=== PATIENT | female | born 1955 | race Caucasian/White ===

== ENCOUNTER 2023-01-15 09:58 | Emergency (ER) | payer MEDICARE, BC ==
[~2023-01-15 09:58] MED LIST: Iopamidol 370 76% 100 ML VIAL ONE
[2023-01-15] MEDS ORDERED: Ondansetron PF 4 MG/2 ML Vial ONE ×2 (10:27→14:54)
[2023-01-15 10:33] LABS: #Monocytes 0.3 thou/uL (0.11-0.59); #Neutrophils 7.9 thou/uL (1.40-6.50); %Basophils 0.1 % (0.0-1.0); %Monocytes 3.7 % (0.0-10.0); %Neutrophils 86.9 % (42.0-75.0); Hemoglobin 9.9 g/dL (12.0-16.0); Mean Corpuscular HGB CONC 32.8 g/dL (32.0-36.0); Mean Corpuscular Hemoglobin 29.4 pg (27.0-31.0); Mean Corpuscular Volume 89.6 fl (78.0-98.0); Mean Platelet Volume 9.7 fL (7.4-10.4); Platelet Count 351 10x3/uL (130-400); RBC Distribution Width 16.2 % (11.5-14.5); Red Blood Cell (RBC) Count 3.37 mill/uL (4.20-5.40); White Blood Cell (WBC) Count 9.1 10x3/uL (4.8-10.8)
[2023-01-15] MEDS ORDERED: Promethazine HCl 6.25 MG in Sodium Chloride 0.9% 50 ML IVPB SCH (10:45)
[2023-01-15 10:51] LABS: ALT (SGPT) 11 U/L (8-55); AST (SGOT) 23 U/L (5-34); Albumin 4.5 g/dL (3.4-4.8); Alkaline Phosphatase 76 U/L (40-110); Anion Gap 19 mmol/L (10-20); BUN (Urea Nitrogen) 11 mg/dL (9.8-20.1); Bilirubin, Total 0.4 mg/dL (0.2-1.2); Calc. Creatinine Clearance 0 mL/min (70-130); Calcium 9.7 mg/dL (7.8-10.44); Carbon Dioxide 24 mmol/L (23-31); Chloride 101 mmol/L (98-107); Estimated GFR 61; Globulin 3.2 g/dL (2.4-3.5); Glucose 131 mg/dL (80-115); Potassium 3.1 mmol/L (3.5-5.1); Protein, Total 7.7 g/dL (5.8-8.1); Sodium 141 mmol/L (136-145)
[2023-01-15] MEDS ORDERED: Diazepam 5 MG TAB ONE (12:13)
[2023-01-15] MEDS ORDERED: Amlodipine 5 MG TAB ONE (12:14)
[2023-01-15] MEDS ORDERED: Labetalol HCl 100 MG/20 ML VIAL ONE (12:14)
[2023-01-15] MEDS ORDERED: Metoprolol Tartrate 25 MG TAB ONE ×2 (13:40→13:42)
== END 2023-01-15 17:38 | disposition home or self-care (01) ==
LOC: EDSEX 09:58 → ERS 09:58
DX: R11.2 Nausea with vomiting, unspecified (principal); I10 Essential (primary) hypertension; F17.210 Nicotine dependence, cigarettes, uncomplicated
CPT/HCPCS: 70450; 74177; 80053; 84484; 85025; 93005; 96374; 96375; 96376; J2405; J2550; Q9967

== ENCOUNTER 2023-03-07 05:59 | Emergency (ER) | payer OTHER, BC, MEDICARE ==
[2023-03-07] MEDS ORDERED: Lidocaine 1% w/Epinephrine 1:100K 20 ML VIAL ONE (06:17)
[2023-03-07] MEDS ORDERED: Morphine 4 MG/ML VIAL ONE (06:36)
[2023-03-07] MEDS ORDERED: Labetalol HCl 100 MG/20 ML VIAL ONE (06:37)
[2023-03-07] MEDS ORDERED: Ondansetron PF 4 MG/2 ML Vial ONE (06:37)
[2023-03-07] MEDS ORDERED: Sterile Water 10 ML ONE (07:15)
[2023-03-07] MEDS ORDERED: CEFAZOLIN 1 GM VIAL ONE (07:15)
[2023-03-07] MEDS ORDERED: HYDROcodone/Acetaminophen 5/325 mg Tablet ONE (07:22)
== END 2023-03-07 08:44 | disposition home or self-care (01) ==
LOC: ERS 05:59
DX: S01.01XA Laceration without foreign body of scalp, initial encounter (principal); M25.572 Pain in left ankle and joints of left foot; I10 Essential (primary) hypertension; Z79.899 Other long term (current) drug therapy; W01.190A Fall on same level from slipping, tripping and stumbling with subsequent striking against furniture, initial encounter
CPT/HCPCS: 12031; 70450; 96372; J0690; J2270; J2405